=== PATIENT | female | born 1950 | race Caucasian/White ===

== ENCOUNTER 2020-05-10 13:45 | Outpatient (CLI) | payer MEDICARE, OTHER, SELFPAY ==
--- NOTE | 2020-05-10 13:54 | MM_ITS ---
WS: [id number] BILATERAL SCREENING DIGITAL MAMMOGRAM WITH CAD HISTORY: SCREENING COMPARISON: 04/10/2019 and 03/17/2018 Bilateral CC and MLO views submitted. Computer aided detection analyzed. Breast composition: The breasts are heterogeneously dense, which may obscure small masses. No suspici ous masses, microcalcifications or architectural distortion. Benign calcifications and breast arteria l calcifications. MM/[place] [id number] IMPRESSION: BI-RADS: 2-Benign FOLLOW UP: 1 Year Follow-up
--- NOTE | 2020-05-10 14:23 | XR_ITS ---
WS: [id number] Exam: XR DEXA axial skeleton* [id number] Date/Time of Exam: 05/10/2020 2:24 PM Reason For Exam: ASYMPTOMATIC MENOPAUSAL STATE DEXA BONE DENSITOMETRY Active-Semi The L1-L4 bone mineral density measures 1.002 g/cm2. This corresponds to a T score of -1.5 and Z scor e of -0.2. Left femoral neck bone mineral density measures 0.960 g/cm2. This corresponds to T score of -0.4 and Z score of 0.9. Right femoral neck bone mineral density measures 0.979 g/cm2. This corresponds to a T score of -0.2 a nd Z score of 1.0. Mean femoral neck bone mineral density measures 0.970 g/cm2. This corresponds to a T score of -0.3 an d Z score of 1.0 XR/XR DEXA axial skeleton* [id number] IMPRESSION: Bone mineral density lies in the osteopenic range. Refer to detailed summary.
== END 2020-05-10 13:46 | disposition home or self-care (01) ==
PROVIDERS: PCP Family Medicine; Visit Provider Family Medicine
DX: Z12.31 Encounter for screening mammogram for malignant neoplasm of breast (principal); Z78.0 Asymptomatic menopausal state
CPT/HCPCS: 77067; 77080

== ENCOUNTER → 2021-02-26 09:40 | Outpatient (BNVA) | payer MEDICARE, OTHER, SELFPAY | PROVIDERS: PCP Family Medicine; Visit Provider Urology | DX: N39.0 Urinary tract infection, site not specified (principal) | CPT/HCPCS: 81003 ==

== ENCOUNTER 2021-03-28 10:47 | Outpatient (CLI) | payer MEDICARE, OTHER, SELFPAY ==
[2021-03-28 11:03] VITALS: BP 154/66; PULSE 69; RESP 16; TEMP 36.2; O2SAT 95; BMI 27.3
[2021-03-28 11:30] VITALS: BP 148/84; PULSE 65; RESP 16; O2SAT 96
[2021-03-28 12:30] VITALS: BP 136/78; PULSE 52; RESP 18; TEMP 36.6; O2SAT 97
== END 2021-03-28 10:48 | disposition home or self-care (01) ==
PROVIDERS: PCP Family Medicine; Visit Provider Nurse Practitioner
DX: U07.1 COVID-19 (principal)
CPT/HCPCS: 96365

== ENCOUNTER 2021-06-10 09:18 | Outpatient (CLI) | payer MEDICARE, OTHER, SELFPAY ==
--- NOTE | 2021-06-10 09:26 | MM_ITS ---
WS: [id number] BILATERAL SCREENING DIGITAL MAMMOGRAM WITH CAD HISTORY: SCREENING COMPARISON: 05/10/2020 and 04/10/2019 Bilateral CC and MLO views submitted. Computer aided detection analyzed. Breast composition: The breasts are heterogeneously dense, which may obscure small masses. No suspici ous masses, microcalcifications or architectural distortion. Bilateral asymmetries and calcifications are stable. MM/[place] [id number] IMPRESSION: BI-RADS: 2-Benign FOLLOW UP: 1 Year Follow-up
== END 2021-06-10 09:19 | disposition home or self-care (01) ==
LOC: RADSHAW 09:25
PROVIDERS: PCP Family Medicine; Visit Provider Family Medicine
DX: Z12.31 Encounter for screening mammogram for malignant neoplasm of breast (principal)
CPT/HCPCS: 77067

== ENCOUNTER → 2022-02-24 13:40 | Outpatient (BNVA) | payer MEDICARE, OTHER, SELFPAY | PROVIDERS: PCP Family Medicine; Referring Provider Dermatology; Visit Provider Podiatrist Foot & Ankle Surgery | DX: M79.672 Pain in left foot (principal); G57.92 Unspecified mononeuropathy of left lower limb | CPT/HCPCS: 99204 ==

== ENCOUNTER → 2022-03-18 13:49 | Outpatient (BNVA) | payer MEDICARE, OTHER, SELFPAY | PROVIDERS: PCP Family Medicine; Visit Provider Podiatrist Foot & Ankle Surgery | DX: S92.022A Displaced fracture of anterior process of left calcaneus, initial encounter for closed fracture (principal); G57.92 Unspecified mononeuropathy of left lower limb; X58.XXXA Exposure to other specified factors, initial encounter | CPT/HCPCS: 99213 ==

== ENCOUNTER → 2022-04-29 13:41 | Outpatient (BNVA) | payer MEDICARE, OTHER, SELFPAY | PROVIDERS: PCP Family Medicine; Visit Provider Podiatrist Foot & Ankle Surgery | DX: S92.022A Displaced fracture of anterior process of left calcaneus, initial encounter for closed fracture (principal); X58.XXXA Exposure to other specified factors, initial encounter; G57.92 Unspecified mononeuropathy of left lower limb | CPT/HCPCS: 73630; 99213 ==

== ENCOUNTER 2022-05-26 13:31 | Outpatient (CLI) | payer MEDICARE, OTHER, SELFPAY ==
--- NOTE | 2022-05-26 13:41 | XR_ITS ---
WS: [id number] Exam: XR hip RT 2-3V wo/w pel* [id number] Date/Time of Exam: 05/26/2022 1:58 PM Reason For Exam: R HIP PAIN No fracture or dislocation. The joint compartment is well maintained. Normal soft tissues. Probable c alcified uterine fibroid in the central pelvis. XR/XR hip RT 2-3V wo/w pel* [id number] IMPRESSION: 1. Unremarkable right hip.
== END 2022-05-26 13:32 | disposition home or self-care (01) ==
LOC: RAD 13:33
PROVIDERS: PCP Family Medicine; Visit Provider Family Medicine
DX: M25.551 Pain in right hip (principal)
CPT/HCPCS: 73502

== ENCOUNTER 2022-07-01 10:06 | Outpatient (CLI) | payer MEDICARE, OTHER, SELFPAY ==
--- NOTE | 2022-07-01 10:15 | MM_ITS ---
WS: [id number] BILATERAL SCREENING DIGITAL TOMOSYNTHESIS MAMMOGRAM WITH CAD HISTORY: SCREENING COMPARISON: 06/10/2021, 05/10/2020 Bilateral CC and MLO views with tomosynthesis and synthetic mammography submitted. Computer aided det ection analyzed. Breast composition: There are scattered areas of fibroglandular density. No suspicious masses, microc alcifications or architectural distortion. Benign breast arterial calcifications and scattered puncta te calcifications. MM/[place] [id number] IMPRESSION: BI-RADS: 2-Benign FOLLOW UP: 1 Year Follow-up
== END 2022-07-01 10:07 | disposition home or self-care (01) ==
LOC: RAD 10:11
PROVIDERS: PCP Family Medicine; Visit Provider Family Medicine
DX: Z12.31 Encounter for screening mammogram for malignant neoplasm of breast (principal)
CPT/HCPCS: 77063; 77067

== ENCOUNTER → 2022-07-31 07:58 | Outpatient (BNVA) | payer MEDICARE, OTHER, SELFPAY | PROVIDERS: PCP Family Medicine; Visit Provider Podiatrist Foot & Ankle Surgery | DX: M72.2 Plantar fascial fibromatosis (principal); M24.572 Contracture, left ankle | CPT/HCPCS: 20550; 99213 ==

== ENCOUNTER → 2022-09-08 09:42 | Outpatient (BNVA) | payer MEDICARE, OTHER, SELFPAY | PROVIDERS: PCP Family Medicine; Visit Provider Podiatrist Foot & Ankle Surgery | DX: M72.2 Plantar fascial fibromatosis (principal); M24.572 Contracture, left ankle | CPT/HCPCS: 99213 ==

== ENCOUNTER → 2022-10-12 13:09 | Outpatient (BNVA) | payer MEDICARE, OTHER, SELFPAY | PROVIDERS: PCP Family Medicine; Visit Provider Podiatrist Foot & Ankle Surgery | DX: M72.2 Plantar fascial fibromatosis (principal); M24.572 Contracture, left ankle | CPT/HCPCS: 99213 ==

== ENCOUNTER → 2023-04-27 10:57 | Outpatient (BNVA) | payer MEDICARE, OTHER, SELFPAY | PROVIDERS: PCP Family Medicine; Visit Provider Dermatology | DX: D48.5 Neoplasm of uncertain behavior of skin (principal); L82.1 Other seborrheic keratosis; L81.4 Other melanin hyperpigmentation; D18.01 Hemangioma of skin and subcutaneous tissue; L57.8 Other skin changes due to chronic exposure to nonionizing radiation; L57.0 Actinic keratosis | CPT/HCPCS: 11102; 17000; 99213 ==

== ENCOUNTER → 2023-05-11 10:00 | Outpatient (BNVA) | payer MEDICARE, OTHER, SELFPAY | PROVIDERS: PCP Family Medicine; Referring Provider Family Medicine; Visit Provider Surgery | DX: Z12.11 Encounter for screening for malignant neoplasm of colon (principal) | CPT/HCPCS: 99024; 99203 ==

== ENCOUNTER → 2023-05-17 13:56 | Outpatient (BNVA) | payer MEDICARE, OTHER, SELFPAY | PROVIDERS: PCP Family Medicine; Visit Provider Podiatrist Foot & Ankle Surgery | DX: M72.2 Plantar fascial fibromatosis; M24.572 Contracture, left ankle; M76.822 Posterior tibial tendinitis, left leg | CPT/HCPCS: 99213 ==

== ENCOUNTER 2023-05-24 14:15 | Outpatient (CLI) | payer MEDICARE, OTHER, SELFPAY ==
--- NOTE | 2023-05-24 14:22 | XR_ITS ---
WS: [id number] DEXA (DUAL ENERGY X-RAY ABSORPTIOMETRY) Bone mineral density was performed using a [email or web address] machine. HISTORY: ASYMPTOMATIC MENOPAUSAL STATE COMPARISON: 05/10/2020 Lumbar spine BMD (L1-L4): 1.031 g/cm2 T score: -1.2 Z score: -0.1 Total hip BMD: Left: 0.948 g/cm2. T score: -0.5 Z score: 0.8 Right: 0.978 g/cm2. T score: -0.2 Z score: 1.0 10 year probability of a major osteoporotic fracture is 15.9%. Compared to the prior study from 05/10/2020. Lumbar spine bone mineral density has increased by 2.9%. Bilateral hips bone mineral density has decreased by 0.7%. IMPRESSION: OSTEOPENIA based upon the WHO classification for females. Significant increase in bone mineral densit y within the lumbar spine since the prior study. No significant change BMD of the hips.
== END 2023-05-24 14:16 | disposition home or self-care (01) ==
PROVIDERS: PCP Family Medicine; Visit Provider Family Medicine
DX: Z78.0 Asymptomatic menopausal state (principal)
CPT/HCPCS: 77080

== ENCOUNTER 2023-06-11 06:40 | Day surgery (SDC) | payer MEDICARE, OTHER, SELFPAY ==
[2023-06-11 06:57] VITALS: BP 161/71; PULSE 70; RESP 16; TEMP 36.7; O2SAT 97; BMI 28.1
[2023-06-11] MEDS: sodium chloride 0.9% 1,000 ML 30 ML IV (07:09)
--- NOTE | 2023-06-11 07:43 | ANES.PREANE2 ---
Pre-Anesthetic Assessment Height/Weight: Height 1.7 m Weight 81.647 kg Temp Pulse Resp BP Pulse Ox O2 Del Method 98.0 F 70 16 161/71 97 Room Air 06/11/23 06:57 06/11/23 06:57 06/11/23 06:57 06/11/23 06:57 06/11/23 06:57 06/11/23 06:57 Preop Diagnosis: screening Operation Date: 06/11/23 07:45 Proposed Procedures p 76178 colon G0121 screen colon A risk z12.11 Z12.11(Not Applicable) - Otis Rose, DO Was Beta Tonya taken within 24 hours: N/A Was Clonidine taken within 24 hours: N/A Last intake: Intake Last Liquid Date 06/10/23 Last Liquid Time 23:30 Last Solid Date 06/09/23 Last Solid Time 20:00 Social Alcohol (1 drink a month) and No tobacco Exam alert, oriented x 3, clear to auscultation bilaterally and regular rate & rhythm Airway Submandibular: within normal limits Cervical ROM: within normal limits Mallampati: Class II Dentition: full Pulmonary None reported CV/HEM None reported Urinary Tract Infection (reocurring has antibiotic on hand when needed) Hepatic None reported GI Gastroesophageal Reflux Disease Metabolic Hyperlipidemia and Thyroid Disease Musc/skel Osteoarthritis/DJD Neuropsych Anxiety and Depression Anesthetic Plan ASA status: 2 Anesthesia: MAC Risk of > 500 ml blood loss (7ml/kg in children): No Medications/Allergies Home Medications Medication Instructions Recorded Confirmed Last Taken Type alprazolam 0.5 mg tablet 0.25 mg PO DAILY PRN Anxiety 01/02/21 06/11/23 06/10/23 History fluticasone propionate 50 1 spray intranasal DAILY 01/02/21 06/11/23 06/11/23 History mcg/actuation nasal spray,suspension (Flonase Allergy Relief) hydrochlorothiazide 25 mg tablet 25 mg PO DAILY 01/02/21 06/11/23 06/10/23 History levothyroxine 25 mcg capsule 25 mcg PO DAILY 01/02/21 06/11/23 06/11/23 History biotin 1 mg tablet 1 mg PO DAILY 02/26/21 06/11/23 06/09/23 History calcium carbonate 600 mg calcium 600 mg PO DAILY 02/26/21 06/11/23 06/09/23 History (1,500 mg) tablet (Calcium) cholecalciferol (vitamin D3) 10 10 mcg PO DAILY 02/26/21 06/11/23 06/09/23 History mcg (400 unit) capsule fexofenadine 60 mg capsule 60 mg PO DAILY 02/26/21 06/11/23 06/10/23 History lactobacillus combination no.4 3 3,000 mmu cells PO DAILY 02/26/21 06/11/23 06/09/23 History billion cell capsule (Probiotic) mecobalamin (vitamin B12) 5,000 5,000 mcg PO DAILY 02/26/21 06/11/23 06/09/23 History mcg lozenge multivitamin 1 tab PO DAILY 02/26/21 06/11/23 06/09/23 History nitrofurantoin 100 mg PO BID PRN Acute cystitis 04/16/22 06/11/23 Unknown Rx monohydrate/macrocrystals 100 mg recurrences #60 caps capsule (Macrobid) citalopram 10 mg tablet (Celexa) 10 mg PO DAILY 05/11/23 06/11/23 06/10/23 History Allergies Allergy/AdvReac Type Severity Reaction Status Date / Time No Known Allergies Allergy Verified 06/11/23 06:54 Current Medications Generic Name Dose Route Start Last Admin Trade Name Freq PRN Reason Stop Dose Admin Sodium Chloride 1,000 mls @ 30 mls/hr 06/11/23 07:00 06/11/23 07:09 Sodium Chloride 0.9% IV 06/12/23 06:59 30 mls/hr .Q24H SALVADOR Administration PFSH Anesthesia Medical History Acute cystitis without hematuria Anxiety Edema Hypothyroidism Recurrent UTI Urolithiasis Surgical History History of appendectomy History of tonsillectomy History of tubal ligation Family History Mother , AT AGE 66 Cancer BREAST Father , AT AGE 85 Heart disease Social History Smoking and tobacco/nicotine status: never used tobacco/nicotine Alcohol intake: never Substance/Drug Use: never Marital status: Current occupational status: retired Data Anesthesia Cardiac Studies: No Data to Display
--- NOTE | 2023-06-11 08:06 | PM.HP ---
Providers/Chief Complaint Primary Care Provider: Melisa Ortiz MD Chief Complaint: [id number] G0121 History of Present Illness Krystal Rader is a 73 year old female Review of Systems General: Reports: 10 or more systems reviewed and unremarkable except in HPI and below Medications/Allergies Home Medications Medication Instructions Recorded Confirmed Last Taken Type alprazolam 0.5 mg tablet 0.25 mg PO DAILY PRN Anxiety 01/02/21 06/11/23 06/10/23 History fluticasone propionate 50 1 spray intranasal DAILY 01/02/21 06/11/23 06/11/23 History mcg/actuation nasal spray,suspension (Flonase Allergy Relief) hydrochlorothiazide 25 mg tablet 25 mg PO DAILY 01/02/21 06/11/23 06/10/23 History levothyroxine 25 mcg capsule 25 mcg PO DAILY 01/02/21 06/11/23 06/11/23 History biotin 1 mg tablet 1 mg PO DAILY 02/26/21 06/11/23 06/09/23 History calcium carbonate 600 mg calcium 600 mg PO DAILY 02/26/21 06/11/23 06/09/23 History (1,500 mg) tablet (Calcium) cholecalciferol (vitamin D3) 10 10 mcg PO DAILY 02/26/21 06/11/23 06/09/23 History mcg (400 unit) capsule fexofenadine 60 mg capsule 60 mg PO DAILY 02/26/21 06/11/23 06/10/23 History lactobacillus combination no.4 3 3,000 mmu cells PO DAILY 02/26/21 06/11/23 06/09/23 History billion cell capsule (Probiotic) mecobalamin (vitamin B12) 5,000 5,000 mcg PO DAILY 02/26/21 06/11/23 06/09/23 History mcg lozenge multivitamin 1 tab PO DAILY 02/26/21 06/11/23 06/09/23 History nitrofurantoin 100 mg PO BID PRN Acute cystitis 04/16/22 06/11/23 Unknown Rx monohydrate/macrocrystals 100 mg recurrences #60 caps capsule (Macrobid) citalopram 10 mg tablet (Celexa) 10 mg PO DAILY 05/11/23 06/11/23 06/10/23 History Allergies Allergy/AdvReac Type Severity Reaction Status Date / Time No Known Allergies Allergy Verified 06/11/23 06:54 PFSH Acute PFSH: Medical History Acute cystitis without hematuria Anxiety Edema Hypothyroidism Recurrent UTI Urolithiasis Surgical History History of appendectomy History of tonsillectomy History of tubal ligation Family History Mother , AT AGE 66 Cancer BREAST Father , AT AGE 85 Heart disease Social History Smoking and tobacco/nicotine status: never used tobacco/nicotine Alcohol intake: never Substance/Drug Use: never Marital status: Current occupational status: retired Vitals/I&O/Wt Last Vital Signs Temp 98.0 F 06/11/23 06:57 Pulse 70 06/11/23 06:57 Resp 16 06/11/23 06:57 BP 161/71 06/11/23 06:57 Pulse Ox 97 06/11/23 06:57 O2 Del Method Room Air 06/11/23 06:57 Weight last 48 hrs Weight 180 lb A&P Assessment and plan (1) Colon cancer screening: Plan Colonoscopy Attestations Medical Necessity Statement*: Home Coding Level of Care Code Acute Code for Chg Fwd Diagnoses Colon cancer screening Z12.11
[2023-06-11 08:32] VITALS: BP 141/76; PULSE 77; RESP 16; TEMP 36.6; O2SAT 94
[2023-06-11 08:42] VITALS: BP 157/76; PULSE 71; RESP 16; O2SAT 94
--- NOTE | 2023-06-11 13:31 | ANE.PACU2 ---
Inpatient post-anesthesia follow up: Airway intact: Yes Vital signs: Temperature 97.8 F Pulse Rate 71 Respiratory Rate 16 Blood Pressure 157/76 Pulse Oximetry 94 Oxygen Delivery Me thod Room Air Oxygen Flow Rate Fraction of Inspir ed Oxygen Hydration adequate: Yes Nausea and vomiting: No Pain level: 1 Mental status: Baseline
== END 2023-06-11 09:15 | disposition home or self-care (01) ==
PROVIDERS: PCP Family Medicine; Visit Provider Surgery
PROC: 0DJD8ZZ Inspection of Lower Intestinal Tract, Via Natural or Artificial Opening Endoscopic (ICD-10-PCS; CPT 45378; principal; 2023-06-11 07:45)
DX: Z12.11 Encounter for screening for malignant neoplasm of colon (principal); K57.30 Diverticulosis of large intestine without perforation or abscess without bleeding; K21.9 Gastro-esophageal reflux disease without esophagitis; E78.5 Hyperlipidemia, unspecified; E03.9 Hypothyroidism, unspecified
CPT/HCPCS: G0121; J2704; J7030

== ENCOUNTER 2023-07-14 09:40 | Outpatient (CLI) | payer MEDICARE, OTHER, SELFPAY ==
--- NOTE | 2023-07-14 | MM_ITS ---
WS: [id number] Bilateral screening 3D tomosynthesis digital mammogram, 07/14/2023 Clinical Data: SCREENING Comparison: 06/01/2022, 06/10/2021, 05/10/2020, 04/10/2019, 03/17/2018, 03/16/2017, 02/06/2016, 01/21/2015, 01/11/2014, 12/26/2012, 10/21/2011, 10/06/2010, 08/29/2017, 08/21/2008, 08/04/2007, 08/12/2006. Findings: The breast parenchymal pattern shows fibroglandular tissue. No spiculated masses or clustered calcifi cations are seen. There are no secondary signs of carcinoma. Impression: 1. Negative bilateral mammogram unchanged. 2. Recommend annual screening mammograms. MM/[place] [id number] BIRADS: 1-Negative FOLLOW UP: 1 Year Follow-up The CAD supervisor [employer] was used.
== END 2023-07-14 09:41 | disposition home or self-care (01) ==
LOC: RAD 09:40
PROVIDERS: PCP Family Medicine; Visit Provider Family Medicine
DX: Z12.31 Encounter for screening mammogram for malignant neoplasm of breast (principal)
CPT/HCPCS: 77063; 77067

== ENCOUNTER → 2024-05-30 13:38 | Outpatient (BNVA) | payer MEDICARE, OTHER, SELFPAY | PROVIDERS: PCP Family Medicine; Visit Provider Nurse Practitioner Family | DX: H61.032 Chondritis of left external ear (principal); L81.4 Other melanin hyperpigmentation; D18.01 Hemangioma of skin and subcutaneous tissue; L57.8 Other skin changes due to chronic exposure to nonionizing radiation; L82.0 Inflamed seborrheic keratosis; L53.8 Other specified erythematous conditions; L29.89 Other pruritus; D48.5 Neoplasm of uncertain behavior of skin; L57.0 Actinic keratosis | CPT/HCPCS: 11102; 17000; 17110; 99213 ==

== ENCOUNTER → 2024-06-27 07:42 | Outpatient (BNVA) | payer MEDICARE, OTHER, SELFPAY | PROVIDERS: PCP Family Medicine; Visit Provider Dermatology | DX: C44.622 Squamous cell carcinoma of skin of right upper limb, including shoulder (principal) | CPT/HCPCS: 11603; 13121 ==

== ENCOUNTER 2024-07-17 12:25 | Outpatient (CLI) | payer MEDICARE, OTHER, SELFPAY ==
--- NOTE | 2024-07-17 12:26 | MM_ITS ---
WS: [email or web address] BILATERAL 3D TOMOSYNTHESIS DIGITAL SCREENING MAMMOGRAPHY WITH CAD CLINICAL INFORMATION: SCREENING HISTORY: Screening mammogram. No current complaints. COMPARISON: 2023 TECHNIQUE: Bilateral CC and MLO views. FINDINGS: The breasts are composed of heterogeneous fibroglandular density tissue, which can limit the detectio n of small underlying mass lesions. No suspicious mass, asymmetry, calcifications, or architectural d istortion. No evidence of malignancy. Vascular calcifications. Bilateral punctate calcifications brandi lar to previous. MM/MM scr tomosynthesis [id number] IMPRESSION: DENSITY: The breasts are heterogeneously dense, which may obscure small masses. BI-RADS: 2 - Benign FOLLOW UP: 1 Year Follow-up Recommend return to annual screening mammography.
== END 2024-07-17 12:26 | disposition home or self-care (01) ==
LOC: RAD 12:25
PROVIDERS: PCP Family Medicine; Visit Provider Family Medicine
DX: Z12.31 Encounter for screening mammogram for malignant neoplasm of breast (principal); R92.333 Mammographic heterogeneous density, bilateral breasts; R92.323 Mammographic fibroglandular density, bilateral breasts; R92.1 Mammographic calcification found on diagnostic imaging of breast
CPT/HCPCS: 77063; 77067

== ENCOUNTER 2024-07-26 14:31 | Outpatient (CLI) | payer MEDICARE, OTHER, SELFPAY ==
--- NOTE | 2024-07-26 14:40 | US_ITS ---
WS: [id number] US pelvic limited [id number] HISTORY: VAGINAL DISCHARGE COMPARISON: 08/29/2007 Uterus: 8.5 cm x 4.6 cm x 3.2 cm. Poorly visualized uterus. Urinary bladder is not well distended. Area of shadowing from the central u terus is probably related to fibroid uterus. Largest calcific deposit measures 1.5 cm. Endometrium: Not visualized. Neither ovary is identified. No adnexal masses. No free fluid in the cul-de-sac. US/US pelvic limited [id number] IMPRESSION: 1. Limited transabdominal pelvic ultrasound. Patient refused transvaginal imag ing. 2. Calcification in the central uterus may be related to a fibroid. 3. Endometrium is not visualized. 4. Neither ovary is identified. The study is not sufficient to exclude endomet rial abnormality.
== END 2024-07-26 14:32 | disposition home or self-care (01) ==
PROVIDERS: PCP Family Medicine; Visit Provider Family Medicine
DX: N89.8 Other specified noninflammatory disorders of vagina (principal); R93.89 Abnormal findings on diagnostic imaging of other specified body structures
CPT/HCPCS: 76857

== ENCOUNTER → 2024-08-31 14:36 | Outpatient (BNVA) | payer MEDICARE, OTHER, SELFPAY | PROVIDERS: PCP Family Medicine; Visit Provider Podiatrist Foot & Ankle Surgery | DX: M79.671 Pain in right foot (principal); M79.672 Pain in left foot; M72.2 Plantar fascial fibromatosis; M24.572 Contracture, left ankle | CPT/HCPCS: 73630; 99213 ==

== ENCOUNTER 2024-09-27 11:51 | Outpatient (CLI) | payer MEDICARE, OTHER, SELFPAY | END 2024-09-27 11:52 | disposition home or self-care (01) | LOC: SPT 11:52 | PROVIDERS: PCP Family Medicine; Visit Provider Podiatrist Foot & Ankle Surgery | DX: Z46.89 Encounter for fitting and adjustment of other specified devices (principal); M76.829 Posterior tibial tendinitis, unspecified leg; M72.2 Plantar fascial fibromatosis; G57.90 Unspecified mononeuropathy of unspecified lower limb | CPT/HCPCS: L3030 ==

== ENCOUNTER → 2024-10-26 12:39 | Outpatient (BNVA) | payer MEDICARE, OTHER, SELFPAY | PROVIDERS: PCP Family Medicine; Visit Provider Nurse Practitioner Family | DX: L82.1 Other seborrheic keratosis (principal); L81.4 Other melanin hyperpigmentation; L57.8 Other skin changes due to chronic exposure to nonionizing radiation; X32.XXXA Exposure to sunlight, initial encounter; Z08 Encounter for follow-up examination after completed treatment for malignant neoplasm; Z85.828 Personal history of other malignant neoplasm of skin | CPT/HCPCS: 99213 ==

== ENCOUNTER → 2024-11-16 14:35 | Outpatient (BNVA) | payer MEDICARE, OTHER, SELFPAY | PROVIDERS: PCP Family Medicine; Visit Provider Podiatrist Foot & Ankle Surgery | DX: M72.2 Plantar fascial fibromatosis (principal); M79.672 Pain in left foot; M24.572 Contracture, left ankle; M76.822 Posterior tibial tendinitis, left leg | CPT/HCPCS: 99213 ==

== ENCOUNTER → 2024-12-06 11:54 | Outpatient (BNVA) | payer MEDICARE, OTHER, SELFPAY | PROVIDERS: PCP Family Medicine; Visit Provider Family Medicine | DX: R10.9 Unspecified abdominal pain (principal); M79.18 Myalgia, other site | CPT/HCPCS: 80053; 83690; 85025 ==

== ENCOUNTER 2024-12-14 15:55 | Outpatient (CLI) | payer MEDICARE, OTHER, SELFPAY ==
--- NOTE | 2024-12-14 16:15 | CT_ITS ---
WS: [id number] CT abdomen pelvis w con* [id number] REASON FOR EXAM: R sided abdominal pain; hx of diverticulitis IV CONTRAST ADMINISTERED: 100 mL of Omnipaque 350. TECHNIQUE: Multiple axial images were obtained after the intravenous administration of contrast. Coronal and sagittal reconstructions were obtained. COMPARISON EXAMINATION: CT scan abdomen and pelvis 05/11/2017 which demonstrated sigmoid diverticulitis. FINDINGS: ABDOMEN: No significant abnormality in the base of the lungs. Small hiatal hernia. Multiple subcentimeter hepatic cysts with dominant cyst in the dome of the right lobe, 2.5 cm. Prominent left lobe of without focal or diffuse abnormality. Gallbladder and pancreas are unremarkable. Normal adrenals. Tiny left renal cysts and a 7 mm right renal cyst. No renal calculi or mass. No hydronephrosis. No abdominal adenopathy, mass, ascites or focal fluid collection. No appendix identified. Possible appendiceal stump. Diverticulosis of the sigmoid colon without evidence of diverticulitis. PELVIS: No free fluid or focal fluid collection. 2. Centimeter calcified leiomyoma of the uterus. No other pelvic abnormality. BONE: Mild degenerative spondylosis with no significant vertebral body abnormality. Mild osteoarthritis of the without focal bone of the pelvis. CT/CT abdomen pelvis w con* [id number] IMPRESSION: Hepatic and renal cysts as above. Uterine leiomyoma. No acute abdominal or pelvic abnormality. TOTAL EXAM DLP: 472.[address] scans at [facility] use at least one of these dose optimizati on techniques: automated exposure control; mA and/or kV adjustment per patient size (includes targeted exams where dose is matched to clinical indication); or iterative reconstruction.
[2024-12-14] MEDS: iohexol 350 mg/mL 500 mL Btl (per mL) IV (16:49)
== END 2024-12-14 15:56 | disposition home or self-care (01) ==
PROVIDERS: PCP Family Medicine; Visit Provider Family Medicine
DX: R10.9 Unspecified abdominal pain (principal); K57.92 Diverticulitis of intestine, part unspecified, without perforation or abscess without bleeding
CPT/HCPCS: 74177

== ENCOUNTER → 2025-03-27 11:55 | Outpatient (BNVA) | payer MEDICARE, OTHER, SELFPAY | PROVIDERS: PCP Family Medicine; Visit Provider Family Medicine | DX: N39.0 Urinary tract infection, site not specified (principal) | CPT/HCPCS: 87086 ==

== ENCOUNTER → 2025-05-29 09:36 | Outpatient (BNVA) | payer MEDICARE, OTHER, SELFPAY | PROVIDERS: PCP Family Medicine; Visit Provider Nurse Practitioner Family | DX: L82.1 Other seborrheic keratosis (principal); L60.8 Other nail disorders; Z08 Encounter for follow-up examination after completed treatment for malignant neoplasm; Z85.828 Personal history of other malignant neoplasm of skin; L82.0 Inflamed seborrheic keratosis; L29.89 Other pruritus; R20.8 Other disturbances of skin sensation; L53.8 Other specified erythematous conditions; D48.5 Neoplasm of uncertain behavior of skin; L57.0 Actinic keratosis | CPT/HCPCS: 11102; 17000; 17110; 99213 ==

== ENCOUNTER 2025-06-26 11:31 | Outpatient (CLI) | payer MEDICARE, OTHER, SELFPAY | END 2025-06-26 11:32 | disposition home or self-care (01) | LOC: LAB 06-28 06:37 | PROVIDERS: PCP Family Medicine; Visit Provider Family Medicine | DX: F41.9 Anxiety disorder, unspecified (principal); E03.9 Hypothyroidism, unspecified; E78.00 Pure hypercholesterolemia, unspecified | CPT/HCPCS: 80061; 84439; 84443 ==